=== PATIENT | male | born 1980 | race African-American/Black ===

== ENCOUNTER 2017-02-28 02:37 | Emergency (ER) | payer SELFPAY ==
[2017-02-28] MEDS ORDERED: AMOXicillin 250 MG CAP ONE (03:17)
[2017-02-28] MEDS ORDERED: Naproxen 500 MG TAB ONE (03:17)
[2017-02-28] MEDS ORDERED: HYDROcodone/Acetaminophen 10/325 mg Tablet ONE (03:19)
[2017-02-28] MEDS ORDERED: Phenergan/Codeine 10-6.25mg/5ml UDCUP ONE (03:19)
== END 2017-02-28 03:27 | disposition home or self-care (01) ==
LOC: MADERS 02:37
DX: J20.9 Acute bronchitis, unspecified (principal); I10 Essential (primary) hypertension; F17.210 Nicotine dependence, cigarettes, uncomplicated; G89.29 Other chronic pain; M54.9 Dorsalgia, unspecified; Z79.891 Long term (current) use of opiate analgesic
CPT/HCPCS: 99283

== ENCOUNTER 2020-01-15 03:40 | Emergency (ER) | payer SELFPAY ==
[2020-01-15] MEDS ORDERED: Ibuprofen 800 MG TAB ONE (04:19)
[2020-01-15] MEDS ORDERED: Clindamycin 150 MG CAP ONE (04:19)
== END 2020-01-15 04:25 | disposition home or self-care (01) ==
LOC: MADERS 03:40
DX: L05.01 Pilonidal cyst with abscess (principal); L03.317 Cellulitis of buttock; I10 Essential (primary) hypertension; F17.210 Nicotine dependence, cigarettes, uncomplicated; Z79.899 Other long term (current) drug therapy
CPT/HCPCS: 99283

== ENCOUNTER 2020-04-10 21:51 | Emergency (ER) | payer SELFPAY ==
[2020-04-10] MEDS ORDERED: Cyclobenzaprine 10 MG TAB ONE (22:25)
== END 2020-04-10 23:12 | disposition home or self-care (01) ==
LOC: MADERS 21:51
DX: S40.022A Contusion of left upper arm, initial encounter (principal); I10 Essential (primary) hypertension; M62.830 Muscle spasm of back; F17.210 Nicotine dependence, cigarettes, uncomplicated; Z79.899 Other long term (current) drug therapy; V49.9XXA Car occupant (driver) (passenger) injured in unspecified traffic accident, initial encounter
CPT/HCPCS: 99283